=== PATIENT | female | born 1990 | race Caucasian/White ===

== ENCOUNTER 2024-06-13 11:04 | Outpatient (CLI) | payer BC, SELFPAY ==
--- NOTE | 2024-06-13 11:15 | CRLHL7_ITS ---
For Patients: As a result of the Cures Act, medical imaging exams and procedure reports are released immediately into your electronic medical record. You may view this report before your referring provider. If you have questions, please contact your health care provider. LMP: 04/05/2024. IRWIN by LMP: 01/10/2025. GA: 9w, 6d. Single. INDICATION: Dating and viability. TECHNIQUE: Transvaginal obstetric ultrasound images were obtained. FINDINGS: CRL: 3/1 cm, 10 w 0 d. IRWIN 01/09/2025. FHR: 176 bpm. GESTATIONAL SAC: 4/4 cm, appears within normal limits. YOLK SAC: 3.6 mm, appears within normal limits. RIGHT OVARY: 2.3 x 4.1 x 2.2 cm. LEFT OVARY: Not visualized. IMPRESSION: 1. Single living intrauterine with sonographic gestational age 10 weeks 0 days and sonographic due date 01/09/2025. 2. Subchorionic hemorrhage inferiorly measures 3.9 x 1.8 x 1.0 cm. 3. On real time imaging there is the suggestion of a possible cervical duplication and recommend correlation with physical exam/prior imaging reports. El Boyd M.D. Diagnostic Radiologist [email or web address] SABA/cami / bM/Dictated by: El Boyd MD @ 06/13/2024 1:07:00 PM (Electronically Signed)
== END 2024-06-13 11:05 | disposition home or self-care (01) ==
LOC: US 11:09
PROVIDERS: Visit Provider Advanced Practice Midwife
DX: Z34.91 Encounter for supervision of normal pregnancy, unspecified, first trimester (principal); O20.9 Hemorrhage in early pregnancy, unspecified; Z3A.09 9 weeks gestation of pregnancy
CPT/HCPCS: 76817; 83021; 86703; 86706; 86803; 86850; 86900; 86901; 87086; 87340

== ENCOUNTER 2024-06-13 12:49 | Outpatient (CLI) | payer BC, SELFPAY | END 2024-06-13 12:50 | disposition home or self-care (01) | PROVIDERS: Visit Provider Advanced Practice Midwife | DX: Z34.91 Encounter for supervision of normal pregnancy, unspecified, first trimester (principal); Z3A.09 9 weeks gestation of pregnancy | CPT/HCPCS: 83020; 83021; 85660; 86592; 86703; 86704; 86706; 86762; 86787; 86803; 86850; 86900; 86901; 87086; 87340 ==

== ENCOUNTER 2024-10-26 10:50 | Outpatient (CLI) | payer BC, SELFPAY | END 2024-10-26 10:51 | disposition home or self-care (01) | LOC: NFLDREF 10-29 16:26 | PROVIDERS: Visit Provider Obstetrics & Gynecology | DX: Z34.83 Encounter for supervision of other normal pregnancy, third trimester (principal); Z67.41 Type O blood, Rh negative | CPT/HCPCS: 86592; 86850 ==

== ENCOUNTER 2024-12-13 12:53 | Outpatient (CLI) | payer BC, SELFPAY ==
[2024-12-14 13:58] LABS: Strep B DNA Probe Negative (Negative)
[2024-12-14 14:03] LABS: Strep B Susceptibility Needed? No
== END 2024-12-13 12:54 | disposition home or self-care (01) ==
LOC: NFLDREF 12:53
PROVIDERS: Visit Provider Obstetrics & Gynecology
DX: Z34.93 Encounter for supervision of normal pregnancy, unspecified, third trimester (principal)
CPT/HCPCS: 87081; 87653

== ENCOUNTER 2025-01-04 10:19 | Outpatient (CLI) | payer BC, SELFPAY ==
--- NOTE | 2025-01-04 11:30 | CRLHL7_ITS ---
For Patients: As a result of the Cures Act, medical imaging exams and procedure reports are released immediately into your electronic medical record. You may view this report before your referring provider. If you have questions, please contact your health care provider. OB ULTRASOUND IRWIN by LMP: 01/10/2025. GA: 39 w, 1 d. Single. Comparison: 08/20/2024, 06/13/2024. INDICATION: TOLAC. TECHNIQUE: Real time grayscale imaging of the fetus was performed. Transabdominal. CERVIX: Not visualized. POSITIONING: Vertex. AMNIOTIC FLUID: 7.2 cm. SDP (N: greater than 2 x 1 cm) PLACENTA: Technique: Transabdominal. PLACENTA POSITION: Anterior. DOPPLER: heart rate: 123 bpm. BIOMETRY: BPD: 9.1 cm. 36 w, 6 d, 22.1%. HC: 33.9 cm. 39 w, 0 d, 34.0%. AC: 36.4 cm. 40 w, 2 d, 92.7%. FL: 7.4 cm. 37 w, 5 d, 21.7%. FL/AC ratio: 20.23%. HC/AC ratio: 0.93. EFW: 3695g. Weight: 8 lbs., 2 oz. age by this US: 38 w, 3 d. IRWIN by this US: 01/15/2025. Percentile by IRWIN: 70.2%. IMPRESSION: 1. Sonographic gestational age 38 weeks 3 days and sonographic due date 01/15/2025. Sonographic age is concordant with the clinical age. 2. Estimated weight 70th percentile. Abdominal circumference 93rd percentile. El Boyd M.D. Diagnostic Radiologist [email or web address] SABA/hanna ferreira/Dictated by: El Boyd MD @ 01/04/2025 11:04:00 AM (Electronically Signed)
== END 2025-01-04 10:20 | disposition home or self-care (01) ==
LOC: US 10:19
PROVIDERS: Visit Provider Obstetrics & Gynecology
DX: Z34.93 Encounter for supervision of normal pregnancy, unspecified, third trimester (principal); Z3A.39 39 weeks gestation of pregnancy
CPT/HCPCS: 76816

== ENCOUNTER 2025-01-10 13:33 | Inpatient (IN) | payer BC, SELFPAY ==
[2025-01-10] VITALS (113 sets, daily range): BP systolic 89–129; BP diastolic 56–82; PULSE 50–122; RESP 16–18; TEMP 36.6–37; O2SAT 90–100; BMI 29.0
--- NOTE | 2025-01-10 11:16 | CRLHL7_ITS ---
For Patients: As a result of the Century Cures Act, medical imaging exams and procedure reports are released immediately into your electronic medical record. You may view this report before your referring provider. If you have questions, please contact your health care provider. INDICATION: Decreased movement COMPARISON: 01/04/2025 TECHNIQUE: Grayscale and color transabdominal ultrasound of the uterus and fetus. FINDINGS: Last menstrual period: 04/05/2024 Estimated gestational age: 40 weeks 0 days GROWTH Single intrauterine gestation in a vertex presentation. heart rate is 122 bpm. Limited anatomy assessment. Growth biometry not performed. Amniotic fluid volume is normal. The placenta is anterior. Placental edge not well evaluated. No periplacental hemorrhage. WELLBEING tone: 2/2 movement: 2/2 breathin/2 Amniotic fluid volume: 2/2 The single deepest vertical pocket measures: 10.2 cm. The amniotic fluid index is 22.4 cm. IMPRESSION: 1. Biophysical profile score is 6/8. No points for breathing. 2. heart rate is 120 beats per minute, near the lower limits of normal. 3. The single deepest vertical pocket of amniotic fluid measures 10.2 centimeters. The amniotic fluid index is 22.4 centimeters, upper limits of normal. Dictated by Anh Craven MD @ 01/10/2025 12:45:31 PM (Electronically Signed)
[2025-01-10] MEDS: LACTATED RINGERS 1000 ML 1,000 ML 1200 ML IV (14:00)
[2025-01-10 14:20] LABS: Hematocrit* 43.5 % (33.0-51.0); Hemoglobin* 15.2 gm/dL (12.0-16.0); Immature Granulocytes Abs Auto 0.08 K/uL (0.00-0.30); Immature Granulocytes Pct Auto 0.9 %; Mean Corpuscular HGB Conc 35 gm/dL (32-36); Mean Corpuscular Hemoglobin 33 pg (26-34); Mean Corpuscular Volume 95 fL (80-100); RDW Coefficient of Variation % 12.2 % (11.5-15.5); Red Blood Count* 4.59 m/uL (4.00-5.20); White Blood Count* 8.81 K/uL (4.50-11.00)
[2025-01-10 14:23] LABS: Lymphocytes Absolute Auto 1.60 K/uL (0.90-2.90); Slide Review Reflex No
[2025-01-10] MEDS: LIDOCAINE 2% (PF) 5 ML VIAL EPIDURAL (15:14)
[2025-01-10] MEDS: ROPIVACAINE 0.2% 100 ml 100 ML 12 MG EPIDURAL (15:14)
--- NOTE | 2025-01-10 15:43 | P.ANBPRC_ITS ---
[facility] Medical History History of depression ?Z87.59 - Personal history of other complications of , childbirth and the puerperium (ICD-10) ?Z86.59 - Personal history of other mental and behavioral disorders (ICD-10) Family history of congenital heart defect ?Z82.79 - Family history of other congenital malformations, deformations and chromosomal abnormalities (ICD-10) Family history of gastroschisis ?Z82.79 - Family history of other congenital malformations, deformations and chromosomal abnormalities (ICD-10) No known health problems ?Z78.9 - Other specified health status (ICD-10) Surgical History History of carpal tunnel surgery of left wrist ?Z98.890 - Other specified postprocedural states (ICD-10) [place] teeth extracted ?K08.409 - Partial loss of teeth, unspecified cause, unspecified class (ICD- 10) Hx of section ?Z98.891 - History of uterine scar from previous surgery (ICD-10) Family History Paternal Grandfather Colon cancer Father Social History Narrative: SOCIAL Education: masters Work: self employee, [employer] 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 Lives with: and kids Pets: dogs and chickens Abuse: Denies past/present Special Diet: Denies Ok with a blood transfusion: yes Culture or oriental orthodox beliefs: denies RISK FACTORS Exercise Times/wk: walks daily Depression/Anxiety: r/t trauma after last DENIA: 0 PHQ 9: 3 Seat Belt Use: Routinely Smoking: Denies past/present Alcohol/day: Denies while Caffeine: 1 cup coffee Drug Use: Denies past/present Chicken Pox: Yes as a child MRSA: Denies What is your current living situation?: I presently have a place to live Problems where you live: no known problems In the past 12 months, utilities in danger of being shut off: no In past 12 months, lack of transportation kept you from medical appts, meetings, work, or getting things needed for daily living: no In the past 12 mos, have been you worried that your food would run out before you had money to buy more?: never true In the past 12 mos, the food you bought just didn't last and you didn't have money to buy more?: never true Smoking Status: Never smoker How often does anyone, including family, friends and others, physically hurt you : never How often does anyone, including family, friends and others, insult or talk down to you: never How often does anyone, including family, friends and others, threaten you with harm: never How often does anyone, including family, friends and others, scream or curse at you: never Meds Home Medications and Allergies Home Medications ?Medication ?Instructions ?Recorded ?Confirmed ?Type vitamin no.49-iron 1 tab PO DAILY 06/13/24 History fum-folic acid 6.75 mg iron-200 mcg tablet (Mini ) magnesium 200 mg tablet 200 mg PO QDAY 08/01/2412/27 History omega-3 fatty acids 1,000 mg 1,000 mg PO QDAY 12/28/24 01/10/25 History capsule Allergies Allergy/AdvReac Type Severity Reaction Status Date / Time No Known Drug Allergies Allergy Verified 01/10/25 11:24 Results Labs Labs: Laboratory Results - last 24 hr 01/10/25 14:10 WBC 8.81 RBC 4.59 Hgb 15.2 Hct 43.5 MCV 95 MCH 33 MCHC 35 RDW Coeff of Summer 12.2 Plt Count 191 Neut % (Auto) 74.3 H Lymph % (Auto) 17.6 L [place] % (Auto) 6.5 Eos % (Auto) 0.5 Baso % (Auto) 0.2 Neut # (Auto) 6.50 Lymph # (Auto) 1.60 [place] # (Auto) 0.60 Eos # (Auto) 0.04 Baso # (Auto) 0.02 Abs Immat Gran (auto) 0.08 Imm/Tot Granulo (auto) 0.9 Blood Type O Negative Antibody Screen NEGATIVE Vital Signs Vital Signs: Last Vital Signs Temp 98.6 F 01/10/25 11:27 Pulse 93 01/10/25 15:40 Resp 16 01/10/25 11:27 BP 115/67 01/10/25 15:40 Pulse Ox 100 01/10/25 15:38 Anesthesia Procedures Epidural Insertion Patient Location: OB Start Time: 14:44 Stop Time: 15:54 Start Date: 01/10/25 Stop Date: 01/10/25 Reason for Block: procedure for pain Patient Position: sitting Performed By: Rossy Booth Preanesthetic Checklist: IV checked, risks and benefits discussed, monitors and equipment checked, pre-op evaluation, timeout performed and anesthesia consent Prep: chlorhexidine gluconate Monitoring: blood pressure monitoring, continuous pulse oximetry and heart rate Approach: midline Vertebral Space: lumbar (1-5) Epidural Technique: TODD saline Needle Type: Tuohy needle Injection Technique: continuous catheter (continuous catheter) Needle gauge: 17 Needle Length (cm): 10 cm Needle Insertion Depth (cm): 7 Catheter Gauge: 19 Catheter Type: multi-orifice Catheter at skin depth (cm): 15 Test Dose Result: negative and lidocaine 1.5% with epinephrine 1 to 200,000
--- NOTE | 2025-01-10 17:17 | P.LDBA_ITS ---
Subjective History of Present Illness Time Seen by Provider: 13:00 Date Seen: 01/10/25 Narrative: Patient is being admitted to Labor and Delivery for nonreassuring heart tracing in clinic. She was sent to L and D for prolonged monitoring and a BPP. She is a 34 year old at 40.0 weeks gestation. Her full history and physical was dictated by Dr. Tonja Cardenas on 12/20/24. Please see this for details. BPP on L&D was 6/8, minus 2 for breathing. Fortunately, NST during extended monitoring was reactive and reassuring. Despite this, I recommended induction of labor as she's is at her due date. She initially declined but started having strong regular contractions. She was noted to have cervical change from 3-4 cm and requesting an epidural. She continues to strongly desire TOLAC but is hoping to avoid Pitocin. Reports that her labor goes quickly and she had a lot of trauma from her emergency C- section where she reports terminal bradycardia due to tachysystole while on Pitocin. Given that she is candelaria Q2 minutes on her own. Will admit patient and pursue expectant management for now. Specific Issues/Plans , : Todd Moran&P by [facility] on 12/20/24 History of fast labors, wants to present early in the course of labor, wants to proceed with epidural placement upon admission to L&D # malpresentation at 36 weeks-Transverse -Vertex at 37 weeks. Check presentation if in labor! # Hx emergency C/S for terminal bradycardia Per her report it was a traumatic experience. Baby was cooled. Doing well. Records reviewed no concerns noted. Indication: Primary delivery for bradycardia, nonreassuring status Two layer closure Delivery complicated by hemorrhage. QBL: 1400 mL TOLAC counseling performed on 10/26/24 Chance of success: 81.7% Would like to schedule repeat delivery at 39 weeks, would like to pursue VTOLAC if presents in labor prior to 39 weeks. 12/13/24-surgery request form sent- Cancelled section at 38 weeks would like to only pursue VTOLAC. # Hx PP depression, situational. # First child had VSD Self resolved. recommended level II US: normal US Recommended echo: declined, elect for echo instead (no VSD seen on level 2 US). Notify peds on admit for echo after delivery. # FOB had gastroschisis vs omphalocele #Rh negative blood type,O-. rhogam at 28 weeks. Declined. Refusal form signed. #Refused 1 hr gtt 1 week of BG monitoring: pt promised to start at 30w6d visit. To do a second week of testing if any abnormals the first week. Please review results next visit. 06/01 readings PP elevated, no GDM Vaccinations: Covid: declines Flu: declines Tdap: Patient declines on 11/07/24. RSV: Ultrasounds: US 01/04/25: cephalic, SDP 7.2, EFW 70.2% = 8 lbs 2 oz, BPD 22.1%, HC 34%, AC 92.7%, FL 21.7%. OB - Problem Based A/P Additional Plan (1) Supervision of high-risk : Status: Acute (2) Family history of congenital heart defect: Problem details: son born with septal heart defect, self resolved Status: Acute (3) Previous delivery affecting : Problem details: Desires TOLAC Status: Acute Plan - Plan: admit for labor. Expected management for now. - Pain management: Epidural per patient - NST: 120 bpm, moderate variability, multiple accelerations, negative decelerations - toco: Q2-3 minutes OB Exam Physical Exam Vital signs: Temp Pulse Resp BP Pulse Ox 98.2 F 112 H 16 108/67 99 01/10/25 15:46 01/10/25 17:05 01/10/25 15:46 01/10/25 17:05 01/10/25 17:12
[2025-01-10] MEDS: CALCIUM CARBONATE 500 MG CHEW PO (17:43)
--- NOTE | 2025-01-10 18:54 | PM.OBPNL ---
Subjective Time Seen by Provider: 17:00 Date Seen: 01/10/25 Narrative: Patient comfortable with an epidural. She asked for a cervical exam. Continues to strongly desired TOLAC. Objective Vital Signs: Last Vital Signs Temp 98.5 F 01/10/25 18:34 Pulse 96 01/10/25 18:48 Resp 18 01/10/25 18:34 BP 113/78 01/10/25 18:48 Pulse Ox 98 01/10/25 18:52 Pelvic Exam Dilation (cm): 4.5 Effacement (%): 75 Station: -2 Comments: Anh consented to AROM as she made minimal private branch exchange service adviser the last 2 hours. AROM at 1707. Clear fluid. No issues. Patient tolerated procedure well. Assessment Assessment: other (Augmentation of labor ) Status: Category l Heart Rate Baseline: 120 Call Center Director Variability: Moderate (6-25) Monitor Accelerations: Present Monitor Decelerations: None Plan Plan: - OR team in house for TOLAC
--- NOTE | 2025-01-10 19:41 | PM.OBPNL ---
Subjective Time Seen by Provider: 19:30 Date Seen: 01/10/25 Objective Vital Signs: Last Vital Signs Temp 98.5 F 01/10/25 18:34 Pulse 56 L 01/10/25 19:34 Resp 18 01/10/25 18:34 BP 100/56 L 01/10/25 19:34 Pulse Ox 99 01/10/25 19:37 Pelvic Exam Dilation (cm): 6.5 Effacement (%): 75 Station: -2 Comments: Patient continues to be comfortable. Abdomen palpates soft in between contractions. Fetus current in OP position. Will work on repositioning to help facilitate better positioning of fetus. Assessment Status: Category l Heart Rate Baseline: 120 Monitor Accelerations: Present Monitor Decelerations: None
[2025-01-10] MEDS: OXYTOCIN 30 unit/500 ML in NS 30 UNIT/500 ML BAG 300 UNIT IVPB (20:39)
--- NOTE | 2025-01-10 21:24 | W.PM.VAGD1_ITS ---
Procedure Delivery date: 01/10/25 Procedure Done: Global Events: Previous and Labor Augmentation Intrapartal Events: Labor Augmentation Delivery augmentation: rupture of membranes (1707) Delivery monitor: external FHT Route of delivery: Laceration description: Perineal - 1st Degree Delivery repair: Vicryl Estimated blood loss (mL): 75 Anesthesia type: Epidural Disposition: floor Narrative: The patient is a 34 year-old G 3 P 2002 admitted on 01/10/2025 at 40 and 0/7 weeks gestation for 6/10 BPP and spontaneous labor. GBS negative Labor Analgesia: Epidural Pitocin: Only for active 3rd stage management AROM: On 01/10/2025 at 1707, with clear fluid Labor onset: 01/10/2025 at 1930 Complete: 01/10/25 at 2026 heart tones during second stage were Cat II with intermittent deceleration that spontaneously resolved with cessation of contraction. At 2037 a viable female delivered in vertex OA presentation over intact via spontaneous vaginal delivery. The 's body was delivered in the usual manner without difficulty. The was placed on maternal abdomen. The cord was clamped and cut after a 30-60 second delay. The nose and mouth were bulb suctioned. Infant weight: pending. 9 at 1 minute and 9 at 5 minutes. Shoulder dystocia: No. Nuchal cord: No Placenta delivered spontaneously and complete at 2042 with a 3-vessel cord. Placenta examined and noted to be complete. Placenta was sent to pathology due to abnormal BPP at term. The cervix and vagina were inspected for lacerations. Laceration(s): 1st degree perineal, repaired with 2-0 vicryl Complications: None Estimated blood loss: 75 cc Cord gases: Not indicated Cord blood obtained. Sponge and needles counts are correct. Mother and infant were stable at the time of this note. [place] Infant Infant Gender: Female total score - 1 minute: 9 total score - 5 minute: 9
[2025-01-10] MEDS: ACETAMINOPHEN 500 MG TABLET 1000 MG PO (23:48)
[2025-01-11 03:40] VITALS: BP 97/62; PULSE 90; RESP 16; TEMP 36.8; O2SAT 98
[2025-01-11] MEDS: IBUPROFEN 600 MG TABLET PO ×2 (03:52→10:57)
[2025-01-11 05:52] LABS: Hemoglobin* 13.1 gm/dL (12.0-16.0)
[2025-01-11] MEDS: ACETAMINOPHEN 500 MG TABLET 1000 MG PO ×2 (08:20→14:55)
[2025-01-11] MEDS: DOCUSATE SODIUM 100 MG CAPSULE PO (08:22)
--- NOTE | 2025-01-11 08:22 | PM.OBDSVD1 ---
DS: Providers Provider Date Seen: 01/11/25 Date of admission: 01/10/25 13:33 Primary care physician: Not a Local Provider Admitting Clinician: Maria Dolores Echeverria MD Attending Physician on discharge: Jazzmine David CNM Date of Discharge: 01/11/25 DS: Diagnosis Discharge Diagnosis (1) care and examination of lactating mother: Status: Acute Exam Narrative: Exam Narrative: VSS, afebrile GENERAL APPEARANCE: ?normal affect, alert, no distress MOOD: ?appropriate HEENT: normocephalic, neck supple, full ROM CHEST: ?Symmetrical chest wall movement. ?Normal respiratory effort. ?Clear to auscultation HEART: ?regular rate and rhythm ABDOMEN: ?soft, non-tender. Uterine fundus is firm, at Umbilicus, Midline and is appropriate for the stage of recovery. ?Bowel sounds present. PERINEUM: ?mild edema of the perineum, there is a 1st degree laceration that is healing well. EXTREMITIES: ?normal and no edema Const: Vital Signs, click to edit/add: Vital Signs - 24 hr 01/10/25 11:27 01/10/25 11:27 01/10/25 15:08 Temperature 98.6 F Pulse Rate 71 72 Pulse Rate [Pulse Oximeter] Respiratory Rate 16 Blood Pressure 112/70 118/63 Blood Pressure [Ri ght Arm] Pulse Oximetry 97 97 Oxygen Delivery Me thod 01/10/25 15:13 01/10/25 15:18 01/10/25 15:23 Temperature Pulse Rate Pulse Rate [Pulse Oximeter] Respiratory Rate Blood Pressure Blood Pressure [Ri ght Arm] Pulse Oximetry 97 98 100 Oxygen Delivery Me thod 01/10/25 15:25 01/10/25 15:27 01/10/25 15:28 Temperature Pulse Rate 82 58 L Pulse Rate [Pulse Oximeter] Respiratory Rate Blood Pressure 125/82 128/58 L Blood Pressure [Ri ght Arm] Pulse Oximetry 94 100 Oxygen Delivery Me thod 01/10/25 15:30 01/10/25 15:32 01/10/25 15:33 Temperature Pulse Rate 68 68 Pulse Rate [Pulse Oximeter] Respiratory Rate Blood Pressure 116/58 L 113/61 Blood Pressure [Ri ght Arm] Pulse Oximetry 100 Oxygen Delivery Me thod 01/10/25 15:34 01/10/25 15:36 01/10/25 15:37 Temperature Pulse Rate 83 77 80 Pulse Rate [Pulse Oximeter] Respiratory Rate Blood Pressure 116/69 116/65 119/71 Blood Pressure [Ri ght Arm] Pulse Oximetry Oxygen Delivery Me thod 01/10/25 15:38 01/10/25 15:40 01/10/25 15:43 Temperature Pulse Rate 93 Pulse Rate [Pulse Oximeter] Respiratory Rate Blood Pressure 115/67 Blood Pressure [Ri ght Arm] Pulse Oximetry 100 99 Oxygen Delivery Me thod 01/10/25 15:45 01/10/25 15:46 01/10/25 15:46 Temperature 98.2 F Pulse Rate 98 Pulse Rate [Pulse Oximeter] Respiratory Rate 16 Blood Pressure 129/56 L Blood Pressure [Ri ght Arm] Pulse Oximetry 90 Oxygen Delivery Me thod 01/10/25 15:48 01/10/25 15:53 01/10/25 15:58 Temperature Pulse Rate Pulse Rate [Pulse Oximeter] Respiratory Rate Blood Pressure Blood Pressure [Ri ght Arm] Pulse Oximetry 97 98 99 Oxygen Delivery Me thod 01/10/25 16:03 01/10/25 16:06 01/10/25 16:11 Temperature Pulse Rate 96 98 Pulse Rate [Pulse Oximeter] Respiratory Rate Blood Pressure 124/79 110/67 Blood Pressure [Ri ght Arm] Pulse Oximetry 98 98 Oxygen Delivery Me thod 01/10/25 16:16 01/10/25 16:18 01/10/25 16:21 Temperature Pulse Rate 114 H Pulse Rate [Pulse Oximeter] Respiratory Rate Blood Pressure 104/63 Blood Pressure [Ri ght Arm] Pulse Oximetry 99 98 Oxygen Delivery Me thod 01/10/25 16:26 01/10/25 16:31 01/10/25 16:34 Temperature Pulse Rate 97 Pulse Rate [Pulse Oximeter] Respiratory Rate Blood Pressure 107/70 Blood Pressure [Ri ght Arm] Pulse Oximetry 98 98 Oxygen Delivery Me thod 01/10/25 16:36 01/10/25 16:41 01/10/25 16:56 Temperature Pulse Rate 90 Pulse Rate [Pulse Oximeter] Respiratory Rate Blood Pressure 119/59 L Blood Pressure [Ri ght Arm] Pulse Oximetry 97 98 Oxygen Delivery Me thod 01/10/25 16:57 01/10/25 17:02 01/10/25 17:05 Temperature Pulse Rate 112 H Pulse Rate [Pulse Oximeter] Respiratory Rate Blood Pressure 108/67 Blood Pressure [Ri ght Arm] Pulse Oximetry 97 98 94 Oxygen Delivery Me thod 01/10/25 17:07 01/10/25 17:12 01/10/25 17:17 Temperature Pulse Rate Pulse Rate [Pulse Oximeter] Respiratory Rate Blood Pressure Blood Pressure [Ri ght Arm] Pulse Oximetry 93 99 98 Oxygen Delivery Me thod 01/10/25 17:18 01/10/25 17:22 01/10/25 17:27 Temperature Pulse Rate 90 Pulse Rate [Pulse Oximeter] Respiratory Rate Blood Pressure 113/71 Blood Pressure [Ri ght Arm] Pulse Oximetry 98 99 Oxygen Delivery Me thod 01/10/25 17:31 01/10/25 17:32 01/10/25 17:37 Temperature Pulse Rate Pulse Rate [Pulse Oximeter] Respiratory Rate Blood Pressure Blood Pressure [Ri ght Arm] Pulse Oximetry 98 98 98 Oxygen Delivery Me thod 01/10/25 17:41 01/10/25 17:42 01/10/25 17:47 Temperature Pulse Rate 69 Pulse Rate [Pulse Oximeter] Respiratory Rate Blood Pressure 118/63 Blood Pressure [Ri ght Arm] Pulse Oximetry 98 98 Oxygen Delivery Me thod 01/10/25 17:49 01/10/25 17:52 01/10/25 17:57 Temperature Pulse Rate 68 Pulse Rate [Pulse Oximeter] Respiratory Rate Blood Pressure 120/62 Blood Pressure [Ri ght Arm] Pulse Oximetry 98 98 Oxygen Delivery Me thod 01/10/25 18:02 01/10/25 18:03 01/10/25 18:07 Temperature Pulse Rate 80 Pulse Rate [Pulse Oximeter] Respiratory Rate Blood Pressure 117/65 Blood Pressure [Ri ght Arm] Pulse Oximetry 99 98 Oxygen Delivery Me thod 01/10/25 18:12 01/10/25 18:17 01/10/25 18:19 Temperature Pulse Rate 82 Pulse Rate [Pulse Oximeter] Respiratory Rate Blood Pressure 121/66 Blood Pressure [Ri ght Arm] Pulse Oximetry 98 98 Oxygen Delivery Me thod 01/10/25 18:22 01/10/25 18:27 01/10/25 18:32 Temperature Pulse Rate Pulse Rate [Pulse Oximeter] Respiratory Rate Blood Pressure Blood Pressure [Ri ght Arm] Pulse Oximetry 98 98 98 Oxygen Delivery Me thod 01/10/25 18:34 01/10/25 18:34 01/10/25 18:37 Temperature 98.5 F Pulse Rate 62 Pulse Rate [Pulse Oximeter] Respiratory Rate 18 Blood Pressure 117/71 Blood Pressure [Ri ght Arm] Pulse Oximetry 98 Oxygen Delivery Me thod 01/10/25 18:42 01/10/25 18:47 01/10/25 18:48 Temperature Pulse Rate 96 Pulse Rate [Pulse Oximeter] Respiratory Rate Blood Pressure 113/78 Blood Pressure [Ri ght Arm] Pulse Oximetry 98 98 Oxygen Delivery Me thod 01/10/25 18:52 01/10/25 18:57 01/10/25 19:02 Temperature Pulse Rate Pulse Rate [Pulse Oximeter] Respiratory Rate Blood Pressure Blood Pressure [Ri ght Arm] Pulse Oximetry 98 98 98 Oxygen Delivery Me thod 01/10/25 19:03 01/10/25 19:07 01/10/25 19:12 Temperature Pulse Rate 68 Pulse Rate [Pulse Oximeter] Respiratory Rate Blood Pressure 115/68 Blood Pressure [Ri ght Arm] Pulse Oximetry 98 98 Oxygen Delivery Me thod 01/10/25 19:17 01/10/25 19:22 01/10/25 19:27 Temperature Pulse Rate Pulse Rate [Pulse Oximeter] Respiratory Rate Blood Pressure Blood Pressure [Ri ght Arm] Pulse Oximetry 98 97 98 Oxygen Delivery Me thod 01/10/25 19:32 01/10/25 19:34 01/10/25 19:37 Temperature Pulse Rate 56 L Pulse Rate [Pulse Oximeter] Respiratory Rate Blood Pressure 100/56 L Blood Pressure [Ri ght Arm] Pulse Oximetry 100 99 Oxygen Delivery Me thod 01/10/25 19:42 01/10/25 19:47 01/10/25 19:49 Temperature Pulse Rate 84 Pulse Rate [Pulse Oximeter] Respiratory Rate Blood Pressure 89/58 L Blood Pressure [Ri ght Arm] Pulse Oximetry 100 100 Oxygen Delivery Me thod 01/10/25 19:51 01/10/25 19:52 01/10/25 19:57 Temperature Pulse Rate 57 L Pulse Rate [Pulse Oximeter] Respiratory Rate Blood Pressure 102/58 L Blood Pressure [Ri ght Arm] Pulse Oximetry 99 98 Oxygen Delivery Me thod 01/10/25 20:02 01/10/25 20:04 01/10/25 20:07 Temperature Pulse Rate 55 L Pulse Rate [Pulse Oximeter] Respiratory Rate Blood Pressure 103/56 L Blood Pressure [Ri ght Arm] Pulse Oximetry 97 97 Oxygen Delivery Me thod 01/10/25 20:12 01/10/25 20:17 01/10/25 20:18 Temperature Pulse Rate 69 Pulse Rate [Pulse Oximeter] Respiratory Rate Blood Pressure 106/62 Blood Pressure [Ri ght Arm] Pulse Oximetry 96 98 Oxygen Delivery Al thod 01/10/25 20:22 01/10/25 20:27 01/10/25 20:30 Temperature Pulse Rate 88 Pulse Rate [Pulse Oximeter] Respiratory Rate Blood Pressure 124/78 Blood Pressure [Ri ght Arm] Pulse Oximetry 98 98 [facility] 20[facility]32 01/10/25 20:33 01/10/25 21:00 Temperature Pulse Rate 122 H 80 Pulse Rate [Pulse Oximeter] Respiratory Rate Blood Pressure 111/71 119/57 L Blood Pressure [Ri ght Arm] Pulse Oximetry 97 [facility] 01/[facility] 21:12 01/10/25 21:13 01/10/25 21:27 Temperature Pulse Rate 55 L Pulse Rate [Pulse Oximeter] Respiratory Rate 16 16 Blood Pressure 115/64 Blood Pressure [Ri ght Arm] Pulse Oximetry [facility] 21:28 01/10/25 21:42 01/10/25 21:43 Temperature 97.9 F Pulse Rate 50 L Pulse Rate [Pulse Oximeter] Respiratory Rate 16 Blood Pressure 115/82 124/59 L Blood Pressure [Ri ght Arm] Pulse Oximetry Oxygen Delivery Al thod 01/10/25 22:06 01/10/25 22:07 01/10/25 22:22 Temperature Pulse Rate 51 L Pulse Rate [Pulse Oximeter] Respiratory Rate 16 16 Blood Pressure 113/62 Blood Pressure [Ri ght Arm] Pulse Oximetry Oxygen Delivery Al thod 01/10/25 22:23 01/10/25 22:36 01/10/25 22:38 Temperature Pulse Rate 52 L 54 L Pulse Rate [Pulse Oximeter] Respiratory Rate 16 Blood Pressure 112/66 107/62 Blood Pressure [Ri ght Arm] Pulse Oximetry [facility] 22:52 01/10/25 22:53 01/10/25 23:22 Temperature Pulse Rate 50 L Pulse Rate [Pulse Oximeter] Respiratory Rate 16 16 Blood Pressure 100/62 Blood Pressure [Ri ght Arm] Pulse Oximetry Oxygen Delivery Me thod 01/10/25 23:23 01/10/25 23:50 01/11/25 03:40 Temperature 97.9 F 98.2 F Pulse Rate 54 L Pulse Rate [Pulse Oximeter] 90 90 Respiratory Rate 16 16 Blood Pressure 110/62 Blood Pressure [Ri ght Arm] 111/68 97/62 Pulse Oximetry 98 98 Oxygen Delivery Me thod Room Air Room Air Documenting provider has reviewed patient's vital signs: yes OB - DS: Summary Hospital Course Hospital Course: Anh is a 34 y.o. who was admitted to [facility] for labor. ?She had an uncomplicated .?The patient feels well. ?The pain is well controlled with current medications. ?She has no new complaints. ?She is breast feeding and reports things are going well.? the patient has done well.? Vitals have been stable.? She has remained afebrile.? Has a good appetite, is tolerating a general diet. ?She is voiding without difficulty.? She is passing gas and has not had a bowel movement.? She is ambulating and denies any dizziness.? Has Small amount of rubra lochia. ?She is planning condoms for prevention. She is requesting 24 hour discharge once echo is completed today. Peripartum Data Infant delivery method: Vaginal Laceration description: Perineal - 1st Degree complications: none [place] Gender: Female Infant Discharge Plan: Home Status at Discharge Functional status at discharge: independent ambulation Overall status at discharge: patient is progressing back to baseline Time Spent with Patient Time attestation: Total time spent providing and/or coordinating discharge services: Time spent: Less than 30 minutes Discharge Plan Discharge Disposition: Home, Self-Care Date of Admission: 01/10/25 13:33 Attending Provider on Discharge: Jazzmine David Primary Care Provider: Provider,Not a Local Condition: Stable Anticipated Discharge Date/Time: 01/11/25 22:00 Discharge Medications: New acetaminophen 500 mg Tablet 1,000 mg PO Q6H PRNQty: 0 0RF docusate sodium 100 mg Capsule 100 mg PO DAILY Qty: 90 0RF ibuprofen 600 mg Tablet 600 mg PO Q6H PRNQty: 60 0RF Continued omega-3 fatty acids 1,000 mg capsule 1,000 mg PO QDAY Mini 6.75 mg iron- 200 mcg tablet 1 tab PO DAILY magnesium 200 mg tablet 200 mg PO QDAY Discharge Orders: Discharge Order (Routine); Ordered 01/11/25 Ordered By: Jazzmine David Patient Education: OB Over the Counter Medication Information, OB Vaginal/Breast Feeding Additional Instructions: Discharge instructions were reviewed with the patient including signs and symptoms of infection and home going medications Nothing vaginally for 6 weeks: no tampons or intercourse Off Work or School for 6 weeks 2-week visit: discuss feeding concerns, review control options and screen for anxiety/depression. 6-week visit for an annual exam. consultation services are available to all mothers and babies for the first year after delivery.? To make an appointment, please call [phone]. Activity Level: Activity as Tolerated Discharge Diet: Regular Follow Up Appointments: [facility] [Provider Group] Forms: Patient Belongings, MyHealth Info Instructions
[2025-01-11 08:25] VITALS: BP 110/71; PULSE 58; RESP 16; TEMP 36.5; O2SAT 96
[2025-01-11 12:19] VITALS: BP 105/67; PULSE 81; RESP 16; TEMP 36.9; O2SAT 97
--- NOTE | 2025-01-11 12:41 | PM.ANPOST ---
Post Anesthesia Note Post Anesthesia Note Patient seen: Inpatient Respiratory Status: adequate Cardiovascular Status: adequate Mental Status: baseline Pain: adequate Temp: baseline Anesthetic awareness: N/A Complications: none Follow care: none
[2025-01-11 16:53] VITALS: BP 95/60; PULSE 81; RESP 16; TEMP 36.8; O2SAT 98
[2025-01-11 20:43] VITALS: BP 106/71; PULSE 76; RESP 16; TEMP 36.8; O2SAT 98
== END 2025-01-11 21:35 | disposition home or self-care (01) | DRG 560 ==
LOC: OB OUT 13:33 → OB 13:33
PROVIDERS: Admitting Provider Obstetrics & Gynecology; Visit Provider Obstetrics & Gynecology
DX: O76 Abnormality in fetal heart rate and rhythm complicating labor and delivery (principal); O34.211 Maternal care for low transverse scar from previous cesarean delivery; O26.893 Other specified pregnancy related conditions, third trimester; Z67.41 Type O blood, Rh negative; O70.0 First degree perineal laceration during delivery; Z82.79 Family history of other congenital malformations, deformations and chromosomal abnormalities; Z3A.40 40 weeks gestation of pregnancy; Z37.0 Single live birth
CPT/HCPCS: 01967; 36415; 36430; 76819; 85018; 85025; 85461; 86592; 86850; 86900; 86901; 88307; 94761; A9270; J2791; J2795; J7120